=== PATIENT | female | born 1990 | race Caucasian/White ===

== ENCOUNTER 2017-04-18 16:52 | Emergency (ER) | payer OTHER ==
[2017-04-18 17:22] VITALS: BP 119/80
--- NOTE | 2017-04-18 17:37 | UC ---
Hand/Wrist HPI - HPI Summary HPI Summary: right wrist pain with out injury for 1 week, also ears are painful - History Of Current Complaint Chief Complaint: UCUpperExtremity Stated Complaint: RIGHT WRIST PAIN Time Seen by Provider: 04/18/17 17:25 Hx Obtained From: Patient Hx Last Menstrual Period: unknown ?: No Mechanism Of Injury: no injury Onset/Duration: Gradual Onset, Lasting Days Severity Initially: Mild Severity Currently: Mild Pain Intensity: 4 Pain Scale Used: 0-10 Numeric Character Of Pain: Aching Aggravating Factor(s): Movement, Lifting Alleviating Factor(s): Nothing Associated Signs And Symptoms: Positive: Negative Related History: Dominant Hand Right - Allergies/Home Medications Allergies/Adverse Reactions: Allergies Allergy/AdvReac Type Severity Reaction Status Date / Time Nichole detergent Allergy Rash Uncoded 04/18/17 17:16 environmental allergies Allergy Sneezing Uncoded 04/18/17 17:16 PMH/Surg Hx/FS Hx/Imm Hx Previously Healthy: No Respiratory History: Asthma - Surgical History Surgical History: None - Family History Known Family History: Positive: None - Social History Occupation: Works From/At Home - has 2 small children she carries arround Lives: With Family Alcohol Use: None Substance Use Type: None Smoking Status (MU): Former Smoker Type: Cigarettes When Did the Patient Quit Smoking/Using Tobacco: 2012 Review of Systems Constitutional: Negative Skin: Negative Eyes: Negative ENT: Ear Ache Respiratory: Negative Cardiovascular: Negative Gastrointestinal: Negative Genitourinary: Negative Motor: Negative Neurovascular: Negative Musculoskeletal: Arthralgia - right wrist Neurological: Negative Psychological: Negative Is Patient Immunocompromised?: No All Other Systems Reviewed And Are Negative: Yes Physical Exam Triage Information Reviewed: Yes Appearance: Well-Appearing, No Pain Distress, Well-Nourished Vital Signs: Initial Vital Signs Temp 98.2 F 04/18/17 17:18 Pulse 90 04/18/17 17:18 Resp 16 04/18/17 17:18 BP 119/80 04/18/17 17:18 Vital Signs Reviewed: Yes Eye Exam: Normal Eyes: Positive: Conjunctiva Clear ENT Exam: Normal ENT: Positive: Normal ENT inspection, Hearing grossly normal, Pharynx normal, TMs normal. Negative: Nasal congestion, Nasal drainage, Trismus, Muffled/ hoarse voice Dental Exam: Normal Neck exam: Normal Neck: Positive: Supple, Nontender Respiratory Exam: Normal Respiratory: Positive: Chest non-tender, Lungs clear, Normal breath sounds, No respiratory distress, No accessory muscle use Cardiovascular Exam: Normal Cardiovascular: Positive: RRR, No Murmur, Pulses Normal, Brisk Capillary Refill Musculoskeletal Exam: Normal Musculoskeletal: Positive: Strength Intact, ROM Intact, No Edema Neurological Exam: Normal Neurological: Positive: Alert, Muscle Tone Normal Psychological Exam: Normal Skin Exam: Normal Hand/Wrist Course/Dx - Course Course Of Treatment: nsaids, wrist splint, sudafed for ears follow with pcp prn - Differential Dx/Diagnosis Provider Diagnoses: Otitis serrous, right wrist tendonitis Discharge - Discharge Plan Condition: Stable Disposition: HOME Prescriptions: Ibuprofen TAB* [Motrin TAB* 600 MG] 600 mg PO Q6H PRN #40 tab PRN Reason: Pain Patient Education Materials: Tendinitis (ED), Serous Otitis Media (ED), Warm Compress or Soak (ED) Referrals: Arsenio Jernigan MD [Medical Doctor] - 2 Weeks
== END 2017-04-18 17:48 | disposition home or self-care (01) ==
LOC: UCCORT 16:52
DX: M77.9 Enthesopathy, unspecified (principal); J45.909 Unspecified asthma, uncomplicated; Z87.891 Personal history of nicotine dependence; H66.90 Otitis media, unspecified, unspecified ear
CPT/HCPCS: 99213; G0463

== ENCOUNTER 2019-02-06 11:48 | Emergency (ER) | payer OTHER ==
[2019-02-06 12:15] VITALS: BP 123/78
--- NOTE | 2019-02-06 12:35 | UC ---
Ear Complaint HPI - HPI Summary HPI Summary: WAS SEEN AT [facility] ON FRIDAY FOR COLD SYMPTOMS AND DX ALLERGY. COUGH SINCE LAST WEEKEND. WOKE UP TODAY W/ RIGHT EARACHE. NO FEVER/CHILLS. - History of Current Complaint Chief Complaint: UCEar Stated Complaint: EAR COMPLAINT Time Seen by Provider: 02/06/19 12:27 Hx Obtained From: Patient Hx Last Menstrual Period: DEPO INJ ?: No Onset/Duration: Sudden Onset, Lasting Hours Severity Initially: Mild Severity Currently: Moderate Pain Intensity: 5 Associated Signs/Symptoms: Positive: URI Symptoms - Allergies/Home Medications Allergies/Adverse Reactions: Allergies Allergy/AdvReac Type Severity Reaction Status Date / Time No Known Allergies Allergy Verified 02/06/19 12:11 Home Medications: Home Medications Anxiety Med 1 tab DAILY 02/06/19 [History Confirmed 02/06/19] Depression Med 1 tab DAILY 02/06/19 [History Confirmed 02/06/19] PMH/Surg Hx/FS Hx/Imm Hx Previously Healthy: Yes - Surgical History Surgical History: None - Family History Known Family History: Positive: None Negative: Cardiac Disease, Hypertension - Social History Alcohol Use: None Substance Use Type: None Smoking Status (MU): Former Smoker Type: Cigarettes When Did the Patient Quit Smoking/Using Tobacco: 2011 Review of Systems All Other Systems Reviewed And Are Negative: Yes ENT: Positive: Sore Throat, Ear Ache Physical Exam Triage Information Reviewed: Yes Appearance: Well-Appearing, Well-Nourished, Pain Distress Vital Signs: Initial Vital Signs Temp 97.9 F 02/06/19 12:12 Pulse 76 02/06/19 12:12 Resp 16 02/06/19 12:12 BP 123/78 02/06/19 12:12 Pulse Ox 100 02/06/19 12:12 Vital Signs Reviewed: Yes Eye Exam: Normal ENT: Positive: Pharyngeal erythema - wiht pnd, TM bulging - bilateral serous fluid noted Dental Exam: Normal Neck exam: Normal Respiratory Exam: Normal Cardiovascular Exam: Normal Abdominal Exam: Normal Bowel Sounds: Positive: Present Musculoskeletal Exam: Normal Neurological Exam: Normal Psychological Exam: Normal Skin Exam: Normal Ear Complaint Course/Dx - Course Course Of Treatment: hx obtained, exam performed ,meds reviewed, treated for bilateral otitis media - Differential Dx/Diagnosis Differential Diagnosis/HQI/PQRI: Otitis Externa, Otitis Media, URI Provider Diagnosis: Acute serous otitis media of both ears Discharge - Sign-Out/Discharge Documenting (check all that apply): Patient Departure All imaging exams completed and their final reports reviewed: No Studies - Discharge Plan Condition: Stable Disposition: HOME Prescriptions: LoraTADine TAB(NF) [Claritin 10 MG TAB(NF)] 10 mg PO DAILY #30 tab Naproxen Sodium [Naproxen 220 mg] 220 mg PO BID PRN #30 tablet PRN Reason: Pain - Mild Patient Education Materials: Serous Otitis Media (ED) Referrals: Hector Mcmanus MD [Primary Care Provider] - Additional Instructions: 1. take the medication as prescribed for the next 2-3 weeks. 2. Follow up if your symptoms worsen even with treatment. - Billing Disposition and Condition Condition: STABLE Disposition: Home
== END 2019-02-06 12:38 | disposition home or self-care (01) ==
LOC: UCCORT 11:48
DX: H65.03 Acute serous otitis media, bilateral (principal); Z87.891 Personal history of nicotine dependence
CPT/HCPCS: 99212; G0463

== ENCOUNTER 2019-07-12 15:43 | Emergency (ER) | payer OTHER ==
--- NOTE | 2019-07-12 15:55 | UC ---
Hand/Wrist HPI - HPI Summary HPI Summary: 28 y/o female presents to the urgent care c/o RT wrist pain and mild swelling s/ p fall Friday06/30/2019. Pt reports when she fell, she twisted her RT wrist. She has applied ice and taken Motrin PO to alleviate symptoms. However this morning she felt some tingling sensation over the fingers and noticed her wrist was mildly swollen. Painful w/ movement 5/10 w/o any radiation. She can move all her finger w/o any difficulty. Pt denies any previous injury to the Rt extremity, SOB, chest pain, abdominal pain, N/V/d. - History Of Current Complaint Stated Complaint: RIGHT WRIST INJURY Time Seen by Provider: 07/12/19 15:54 Hx Obtained From: Patient Hx Last Menstrual Period: DEPO INJ ?: No - Pt declined test Onset/Duration: Sudden Onset, Lasting Days - 3 days fell on and twisted her Rt wrist, Still Present Severity Initially: Moderate Severity Currently: Moderate Pain Intensity: 5 Pain Scale Used: 0-10 Numeric Character Of Pain: Sharp Aggravating Factor(s): Movement, Lifting, Flexion Alleviating Factor(s): OTC Meds - tylenol Associated Signs And Symptoms: Positive: Swelling - mild. Negative: Bruising, Fever, Numbness/Tingling Related History: Dominant Hand Right - Allergies/Home Medications Allergies/Adverse Reactions: Allergies Allergy/AdvReac Type Severity Reaction Status Date / Time No Known Allergies Allergy Verified 07/12/19 15:57 PMH/Surg Hx/FS Hx/Imm Hx Previously Healthy: Yes Respiratory History: Asthma - controlled - Surgical History Surgical History: None - Family History Known Family History: Positive: Hypertension Negative: Cardiac Disease - Social History Occupation: Employed Full-time Lives: With Family Alcohol Use: None Substance Use Type: None Smoking Status (MU): Former Smoker Type: Cigarettes When Did the Patient Quit Smoking/Using Tobacco: 2011 Review of Systems All Other Systems Reviewed And Are Negative: Yes Constitutional: Positive: Negative Skin: Positive: Negative Eyes: Positive: Negative ENT: Positive: Negative Respiratory: Positive: Negative Cardiovascular: Positive: Negative Gastrointestinal: Positive: Negative Genitourinary: Positive: Negative Motor: Positive: Negative Neurovascular: Positive: Negative Musculoskeletal: Positive: Decreased ROM - RT wrist s/p fall, Other: - RT wrist pain s/p fall 3 days ago Neurological: Positive: Negative Psychological: Positive: Negative Is Patient Immunocompromised?: No Physical Exam - Summary Physical Exam Summary: Vital Signs Reviewed: Yes General: Well-Appearing, No Pain Distress, Well-Nourished - female w/o any apparent pain distress Eyes: Positive: Conjunctiva Clear - PERRLA, EOMI ENT: Positive: Normal ENT inspection, Hearing grossly normal, Pharynx normal, TMs normal, Uvula midline Neck: Positive: Supple, Nontender, No Lymphadenopathy Respiratory: Positive: Chest non-tender, Lungs clear, Normal breath sounds, No respiratory distress Cardiovascular: Positive: RRR, No Murmur, Pulses Normal, Brisk Capillary Refill Abdomen Description: Positive: Nontender, No Organomegaly, Soft. Negative: CVA Tenderness (R), CVA Tenderness (L) Bowel Sounds: Positive: Present Musculoskeletal: Positive: Strength Intact, Other: Neurological Exam: Normal Musculoskeletal: Positive: Wrist: the R wrist is without obvious asymmetry or deformity when compared to the L wrist. No surface trauma, open wounds, swelling , or obvious deformity. No overlying erythema or warmth. No bony crepitus. Point tenderness over the thenar eminence and ventral side of wrist. No scaphoid fullness or tenderness to direct palpation or axial load. Decreased ROM due to pain. Motor/sensory function of ulnar, radial, median nerves intact. Psychological Exam: Normal Skin Exam: Normal Triage Information Reviewed: Yes Hand/Wrist Course/Dx - Course Course Of Treatment: 28 y/o female presents to the urgent care c/o RT wrist pain and mild swelling s/ p fall Friday06/30/2019. Pt reports when she fell, she twisted her RT wrist. She has applied ice and taken Motrin PO to alleviate symptoms. However this morning she felt some tingling sensation over the fingers and noticed her wrist was mildly swollen. Painful w/ movement 5/10 w/o any radiation. She can move all her finger w/o any difficulty. Pt denies any previous injury to the Rt extremity, SOB, chest pain, abdominal pain, N/V/d. Hx obtained. RT wrist X-ray ordered. Impression: There was no fracture, dislocation, soft tissue swelling or FB noted. Probably a left wrist sprain. Pts wrist immobilized with thumb spica splint. Advised RICE: Rest, Ice, elevation, Ibuprofen PO. There has no neurovascular compromise after splint application placed by nurse; the splint was in good alignment and the pt had good sensation and capillary refill at the time of discharge.Pt advised to f/u w/ Orthopedic from Sports Medicine if not improvement of symptoms in 1 week. Pt understood and agreed w/ plan of care. - Differential Dx/Diagnosis Differential Diagnosis/HQI/PQRI: Contusion, Fracture, Sprain, Strain, Tendonitis Provider Diagnosis: Right wrist pain, Right wrist sprain Discharge ED - Sign-Out/Discharge Documenting (check all that apply): Patient Departure - d/c home All imaging exams completed and their final reports reviewed: Yes - Discharge Plan Condition: Stable Disposition: HOME Patient Education Materials: Wrist Sprain (ED) Forms: *Work Release Referrals: Hector Mcmanus MD [Primary Care Provider] - 1 Week [facility] [Provider Group] - 1 Week Additional Instructions: 1-Please continue taking Tylenol PO medications as directed to alleviate pain and swelling. 2-Please apply ice, keep your wrist immobilized with the splint. Avoid heavy lifting or strenuous exercise. 3- Please f/u with Orthopedic or your PCP in 1 week is not improvement of symptoms for further evaluation and treatment. - Billing Disposition and Condition Condition: STABLE Disposition: Home
[2019-07-12 15:58] VITALS: BP 117/73
[2019-07-12] MEDS ORDERED: Acetaminophen TAB* 325 MG PO ONE (16:12)
== END 2019-07-12 17:04 | disposition home or self-care (01) ==
LOC: UCCORT 15:43
DX: M25.531 Pain in right wrist (principal); S63.501A Unspecified sprain of right wrist, initial encounter; X50.1XXA Overexertion from prolonged static or awkward postures, initial encounter; Y92.9 Unspecified place or not applicable; J45.909 Unspecified asthma, uncomplicated; Z87.891 Personal history of nicotine dependence
CPT/HCPCS: 99213; A9270-GY; G0463

== ENCOUNTER 2019-08-10 08:04 | Emergency (ER) | payer OTHER ==
[2019-08-10 08:33] VITALS: BP 120/73
--- NOTE | 2019-08-10 08:40 | UC ---
Throat Pain/Nasal Raymond HPI - HPI Summary HPI Summary: sore throat x 4 days pain is 6 out 10 , better with Tylenol dry cough , nasal congestion , fever , chills and body aches her son was diagnosed with flu one week ago - History of Current Complaint Chief Complaint: UCGeneralIllness Stated Complaint: LOST VOICE/BILAT LEG PAIN/FEVER Time Seen by Provider: 08/10/19 08:24 Hx Obtained From: Patient Hx Last Menstrual Period: pt does not get one while on the depo inj ?: No Onset/Duration: Gradual Onset, Lasting Days - 4, Still Present Severity: Moderate Pain Intensity: 5 Cough: Nonproductive Associated Signs & Symptoms: Positive: Sinus Discomfort, Nasal Discharge, Fever. Negative: Vomiting, Rash - Allergies/Home Medications Allergies/Adverse Reactions: Allergies Allergy/AdvReac Type Severity Reaction Status Date / Time ibuprofen Allergy GI Upset Verified 08/10/19 08:26 PMH/Surg Hx/FS Hx/Imm Hx - Additional Past Medical History Additional PMH: GERD, gastritis, anemia, amblyopia, HPV, scoliosis, anxiety, depression Respiratory History: Asthma GI/ History: Gastroesophageal Reflux Psychological History: Anxiety, Depression - Surgical History Surgical History: None - Family History Known Family History: Positive: None, Hypertension Negative: Cardiac Disease - Social History Alcohol Use: None Substance Use Type: None Smoking Status (MU): Former Smoker Type: Cigarettes When Did the Patient Quit Smoking/Using Tobacco: 2011 Review of Systems All Other Systems Reviewed And Are Negative: Yes Constitutional: Positive: Fever, Chills, Fatigue Skin: Positive: Negative Eyes: Positive: Negative ENT: Positive: Sore Throat, Nasal Discharge Respiratory: Positive: Cough Is Patient Immunocompromised?: No Physical Exam Triage Information Reviewed: Yes Appearance: Well-Appearing, No Pain Distress, Well-Nourished Vital Signs: Initial Vital Signs Temp 97.4 F 08/10/19 08:27 Pulse 106 08/10/19 08:27 Resp 17 08/10/19 08:27 BP 120/73 08/10/19 08:27 Pulse Ox 100 08/10/19 08:27 Vital Signs Reviewed: Yes Eye Exam: Normal Eyes: Positive: Conjunctiva Clear ENT: Positive: Normal ENT inspection, Hearing grossly normal, Pharynx normal, Nasal congestion, TMs normal. Negative: Pharyngeal erythema Neck: Positive: Supple, Nontender, No Lymphadenopathy Respiratory: Positive: Chest non-tender, Lungs clear, Normal breath sounds Cardiovascular: Positive: RRR, No Murmur, Pulses Normal Abdominal Exam: Normal Abdomen Description: Positive: Nontender, Soft Skin Exam: Normal Throat Pain/Nasal Course/Dx - Differential Dx/Diagnosis Provider Diagnosis: Influenza Discharge ED - Sign-Out/Discharge Documenting (check all that apply): Patient Departure All imaging exams completed and their final reports reviewed: No Studies - Discharge Plan Condition: Stable Disposition: HOME Patient Education Materials: Influenza (ED) Forms: *Work Release Referrals: Hector Mcmanus MD [Primary Care Provider] - If Needed - Billing Disposition and Condition Condition: STABLE Disposition: Home
[2019-08-10 09:06] LABS: Influenza B Molecular POSITIVE (Negative)
== END 2019-08-10 09:17 | disposition home or self-care (01) ==
LOC: UCCORT 08:04
DX: J11.1 Influenza due to unidentified influenza virus with other respiratory manifestations (principal); J45.909 Unspecified asthma, uncomplicated; Z87.891 Personal history of nicotine dependence; Z88.6 Allergy status to analgesic agent
CPT/HCPCS: 87651; 99211; G0463